=== PATIENT | female | born 1930 | race Caucasian/White ===

== ENCOUNTER 2016-07-07 09:02 | Observation (INO) | payer BC ==
[2016-07-03 11:44] LABS: BASOPHILS 0.1 %; BASOPHILS ABSOLUTE 0.01 10/3/uL (0.0-0.16); EOSINOPHILS 0.6 %; EOSINOPHILS ABSOLUTE 0.05 10/3/uL (0.0-0.53); HEMATOCRIT 41.3 % (36.0-48.0); HEMOGLOBIN 14.3 g/dL (12.0-16.0); LYMPHOCYTES 29.2 %; LYMPHOCYTES ABSOLUTE 2.49 10/3/uL (0.67-4.30); MANUAL DIFF NO %; MEAN CORPUS HGB CONC 34.6 g/dL (32.0-36.0); MEAN CORPUSCULAR HEMOGLOB 33.6 pg (26.0-34.0); MEAN CORPUSCULAR VOLUME 96.9 fL (80-100); MEAN PLATELET VOLUME 10.4 fL (9.2-13.0); MONOCYTES 9.4 %; NEUTROPHILS 60.7 %; NEUTROPHILS ABSOLUTE 5.17 10/3/uL (2.02-8.40); PLATELET COUNT 262 10/3/uL (150-400); RBC DISTRIBUTION WIDTH 13.6 % (12.0-16.0); RED CELL COUNT 4.26 10/6/uL (4.0-5.6); WHITE BLOOD CELLS 8.5 10/3/uL (4.5-10.5)
[2016-07-03 12:01] LABS: BUN (BLOOD UREA NITROGEN) 15 MG/DL (6-23); CALCIUM, SERUM 8.8 MG/DL (8.5-10.4); CHLORIDE, SERUM 103 MMOL/L (96-112); CO2 (CARBON DIOXIDE) 28 MMOL/L (24-34); CREATININE 0.73 MG/DL (0.55-1.02); GFR AFRICAN AMERICAN 85 ML/MIN (>=60); GFR NON AFRICAN AMERICAN 74 ML/MIN (>=60); GLUCOSE, SERUM 97 MG/DL (60-99); POTASSIUM, SERUM 3.8 MMOL/L (3.5-5.3); SODIUM, SERUM 141 MMOL/L (135-148)
[2016-07-03 12:04] LABS: CEA 1.7 NG/ML
--- NOTE | ~2016-07-07 | OP ---
Record Of Operation [facility] [address] [place]. [address] NAME: VIK CONDE : [birth year] STATUS : ADM Anibal PAT#: [id number] AGE: 86 ADM/REG DATE : 07/07/16 MR#: [id number] REPORT SERV DATE: 07/07/16 DICTATED BY: NOAH MINER DATE: 07/07/16 REPORT STATUS : Draft TRANSCRIBED BY: MODL DATE: 07/07/16 DATE OF PROCEDURE: 07/07/2016 PREOPERATIVE DIAGNOSIS: Ovarian mass. 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 Final pathology pending. PROCEDURE: Laparoscopic hysterectomy with bilateral salpingo-oophorectomy via the da Jesus laparoscopic robotic instrument, CPT code 91660. SURGEON: Noah Miner M.D. ASSISTANTS: Dr. Gretchen Ugalde and Huong. ESTIMATED BLOOD LOSS: 25 mL. FLUIDS IN: 1300 mL of crystalloid. COMPLICATIONS: None. ANESTHESIA: General endotracheal. INDICATION AND FINDINGS: This is an 86-year-old female, who presented with imaging studies consistent with an ovarian mass. She was taken to the operating room for removal. Intraoperatively the mass was coming off the right ovary. There were no adhesions. The mass was removed intact through the vagina, after that it was placed into an EndoCatch bag. There was no evidence of tumor throughout the abdominal cavity. Because this was a mucinous tumor, the appendix was visualized, it was retrocecal, it was normal with no gross evidence of malignancy or neoplasm. A portion of the omentum was also taken but also was grossly normal. The remainder of the abdominal cavity was normal. She did have a significant amount of diverticulosis on the left colon. Preoperatively, the patient was treated with Lovenox for DVT prophylaxis. She was also given prophylactic antibiotics. Postprocedure, a cystoscopy was performed with excellent bilateral ureteral jets. No evidence of bladder defect. PROCEDURE IN DETAIL: The patient was then taken to the operating room. She was placed in the supine position for administration of general anesthesia. She was then placed in the dorsal lithotomy position and prepped and draped in the usual sterile fashion. A EVY uterine manipulator was placed through the uterine cervix and out the fundus, and a CAROLANN ring was sutured to the patient's cervix. Our attention was then turned towards the anterior abdominal wall where an incision was made approximately 25 cm above the pubic symphysis and taken down to the underlying layer of fascia. The fascia was grasped with two sutures of 0 Vicryl, tented up, and entered sharply. The peritoneum was then tented up and entered sharply, and a laparoscopic trocar was placed under direct visualization. The abdominal cavity was insufflated with CO2. Two additional 8 mm trocars were placed, one additional 12 Record Of Operation [address] [address] NAME: VIK CONDE : [birth year] STATUS : ADM Anibal PAT#: [id number] AGE: 86 ADM/REG DATE : 07/07/16 MR#: [id number] REPORT SERV DATE: 07/07/16 DICTATED BY: NOAH MINER DATE: 07/07/16 REPORT STATUS : Draft TRANSCRIBED BY: CARLOS DATE: 07/07/16 mm trocar was placed, all under direct visualization. The abdominal cavity was insufflated and the patient is docked to the laparoscopic robotic instrument. The remainder of the procedure was performed via the da Jesus. The above findings were noted. Pelvic washings were obtained. The retroperitoneal spaces were opened via the round ligaments which were grasped with bipolar cautery, cauterized and transected bilaterally. The gonadal vessels were isolated and hemoclips were placed to ensure long-term hemostasis. They were then coagulated and transected bilaterally. The uterine arteries were then isolated. Hemoclips were placed at their origin. They were then skeletonized at the level of the cervix, grasped with bipolar cautery, cauterized and transected bilaterally. Anteriorly a bladder flap was created and taken down to a level well below the cervix. The uterosacral cardinal complex was then taken down with unipolar cautery and a circumferential incision was made around the cervix and vagina and the uterus, tubes, ovaries, and cervix were delivered through the vagina with the above findings noted. The vaginal cuff was then closed with a running stitch of #1 PDS V-Loc. The pelvis was irrigated with copious amounts of warm water. All pedicles were inspected and found to be hemostatic. The laparoscopic instruments were removed. The gas was expelled from the abdomen. The initial incision was closed with 0 Vicryl at the fascia. The 12 mm port was also closed with 0 Vicryl at the fascia. The skin sites were closed with 4-0 Monocryl and Dermabond was placed. Postprocedure, a cystoscopy was performed with excellent bilateral ureteral jets. No evidence of bladder defect. At the completion of the procedure, the anesthesia was reversed. The patient was extubated and taken to the recovery room in stable condition. REID/CARLOS Noah Miner M.D. / [id number] CC: Noah Miner M.D.
[~2016-07-07 09:02] MED LIST: FISH OIL PO; MULTI VITAMIN PO; OS500+D PO; X25 PO
[2016-07-08 05:13] LABS: BASOPHILS 0 %; EOSINOPHILS 0 %; HEMATOCRIT 39.7 % (36.0-48.0); HEMOGLOBIN 13.5 g/dL (12.0-16.0); IMMATURE GRANULOCYTES 0.2 %; IMMATURE GRANULOCYTES ABSOLUTE 0.02 10/3/uL (0.0-0.11); LYMPHOCYTES 9.8 %; LYMPHOCYTES ABSOLUTE 1.11 10/3/uL (0.67-4.30); MEAN CORPUSCULAR HEMOGLOB 33.6 pg (26.0-34.0); MEAN CORPUSCULAR VOLUME 98.8 fL (80-100); MEAN PLATELET VOLUME 10.6 fL (9.2-13.0); MONOCYTES 8.8 %; NEUTROPHILS 81.2 %; NEUTROPHILS ABSOLUTE 9.18 10/3/uL (2.02-8.40); PLATELET COUNT 225 10/3/uL (150-400); RED CELL COUNT 4.02 10/6/uL (4.0-5.6); WHITE BLOOD CELLS 11.3 10/3/uL (4.5-10.5)
[2016-07-08 05:14] LABS: MANUAL DIFF NO %
[2016-07-08 05:33] LABS: CALCIUM, SERUM 8.4 MG/DL (8.5-10.4); CHLORIDE, SERUM 107 MMOL/L (96-112); CO2 (CARBON DIOXIDE) 26 MMOL/L (24-34); CREATININE 0.67 MG/DL (0.55-1.02); GFR AFRICAN AMERICAN 91 ML/MIN (>=60); GFR NON AFRICAN AMERICAN 78 ML/MIN (>=60); GLUCOSE, SERUM 115 MG/DL (60-99); POTASSIUM, SERUM 4.5 MMOL/L (3.5-5.3); SODIUM, SERUM 143 MMOL/L (135-148)
[2016-07-08 05:34] LABS: BUN (BLOOD UREA NITROGEN) 10 MG/DL (6-23)
[2016-07-08] MEDS ORDERED: PCET PO (08:59)
[2016-07-08] MEDS ORDERED: ZOFRAN4 PO (09:00)
[2016-07-08] MEDS ORDERED: BIST PO (09:01)
[2016-07-08] MEDS ORDERED: MYLICON 80 MG T80 MG PO (09:02)
== END 2016-07-08 12:07 | disposition home or self-care (01) ==
LOC: SDC 09:02 → 4EA 17:35
PROVIDERS: Obstetrics & Gynecology Gynecologic Oncology
PROC: 0UT24ZZ Resection of Bilateral Ovaries, Percutaneous Endoscopic Approach (ICD-10-PCS; 2016-07-07)
PROC: 0UT74ZZ Resection of Bilateral Fallopian Tubes, Percutaneous Endoscopic Approach (ICD-10-PCS; 2016-07-07)
PROC: 0UT94ZZ Resection of Uterus, Percutaneous Endoscopic Approach (ICD-10-PCS; principal; 2016-07-07 11:00)
PROC: 0UTC4ZZ Resection of Cervix, Percutaneous Endoscopic Approach (ICD-10-PCS; 2016-07-07 11:00)
DX: D27.0 Benign neoplasm of right ovary (principal); N85.00 Endometrial hyperplasia, unspecified; N72 Inflammatory disease of cervix uteri; Z98.41 Cataract extraction status, right eye; Z98.42 Cataract extraction status, left eye
CPT/HCPCS: 36415; 71020; 80048; 82378; 85025; 86850; 86900; 86901; 88112; 88305; 88307; 88309; 88331; 88332; 93005; 96374; 96376; A9270-GY; G0378; J0694; J2250; J2370; J2405; J2550; J2710; J2795; J3010